=== PATIENT | male | born 1955 | race Caucasian/White ===

== ENCOUNTER 2023-03-19 11:09 | Emergency (ER) | payer OTHER ==
[~2023-03-19] VITALS: Ht 165.1 cm; Wt 81.6 kg
[2023-03-19 11:20] VITALS: BP 123/60
[2023-03-19] MEDS ORDERED: fentaNYL citrate 0.05 MG/ML VIAL IVP ONE ×2 (11:55→14:55)
[2023-03-19] MEDS ORDERED: ACET-8905 PO (12:48)
[2023-03-19] MEDS ORDERED: IBUP-2213 PO (12:48)
--- NOTE | 2023-03-19 14:34 | NUR ---
CALLED PT.'S DAUGHTER FOR PT. CENTRIFUGAL SEPARATOR GONZALEZ AT [phone]. SPOKE WITH HER AND SHE STATED THAT SHE WILL CENTRIFUGAL SEPARATOR PT. BETWEEN 1500 AND 1530
[2023-03-19 15:49] VITALS: BP 123/60
--- NOTE | 2023-03-19 15:50 | NUR ---
Patient discharged with v/s stable. Written and verbal after care instructions given and explained. Patient alert, oriented and verbalized understanding of instructions. Wheel Chair Assisted with to home. All questions addressed prior to discharge. ID band removed. Patient advised to follow up with PMD. Rx of NORCO AND IBUPROFEN given. Patient educated on indication of medication including possible reaction and side effects. Opportunity to ask questions provided and answered.
== END 2023-03-19 15:49 | disposition home or self-care (01) ==
LOC: MED 11:09
DX: M54.50 Low back pain, unspecified (principal); R06.02 Shortness of breath; E11.9 Type 2 diabetes mellitus without complications; I10 Essential (primary) hypertension; Z98.890 Other specified postprocedural states; Z88.5 Allergy status to narcotic agent
CPT/HCPCS: 96374; 96376; 99284; J3010